=== PATIENT | male | born 1940 | race Caucasian/White ===

== ENCOUNTER → 2024-01-03 08:09 | Outpatient (REF) | payer OTHER, SELFPAY ==
[2024-01-03 08:40] LABS: % Basophils 1.7 % (0-2); % Eosinophils 10.2 % (0-6); % Immature Granulocytes 0.3 % (0-0.5); % Lymphocytes 31.5 % (20.5-51.1); % Monocytes 8.6 % (1.7-9.3); % Neutrophils 47.7 % (42.2-75.2); Absolute Basophils 0.1 10^3/uL (0-0.2); Absolute Eosinophils 0.7 10^3/uL (0-0.7); Absolute Lymphocytes 2.1 10^3/uL (1.2-3.4); Absolute Monocytes 0.6 10^3/uL (0.1-0.6); Absolute Neutrophils 3.1 10^3/uL (1.4-6.5); Hematocrit 36.6 % (39.0-52.0); Hemoglobin 12.4 g/dL (13.0-18.0); Mean Corp Hgb Conc. 33.9 g/dL (33.0-37.0); Mean Corpuscular Hgb 32.5 pg (27.0-31.0); Mean Corpuscular Volume 96.1 fL (80.0-94.0); Nucleated Red Blood Cells % 0 % (-); Platelet Count 216 10^3/uL (130-400); Red Blood Cell Count 3.81 10^6/uL (4.70-6.10); Red Cell Dist. Width 12.8 % (11.5-14.5); White Blood Cell Count 6.5 10^3/uL (4.8-10.8)
[2024-01-03 09:11] LABS: ALT (SGPT) 17 U/L (0-50); AST (SGOT) 28 U/L (17-59); Alkaline Phosphatase 47 U/L (38-126); Blood Urea Nitrogen 21 mg/dl (9-20); Calcium 9.2 mg/dl (8.4-10.2); Carbon Dioxide 26 mmol/L (22-30); Chloride 107 mmol/L (98-107); Glucose 90 mg/dl (70-99); HDL Cholesterol 45 mg/dl; LDL Cholesterol, Calculated 52 mg/dl; Potassium 4.2 mmol/L (3.5-5.1); Sodium 122 mmol/L (135-145); Total Bilirubin 0.8 mg/dl (0.2-1.3); Total Cholesterol 122 mg/dl (50-199); Total Protein 6.3 g/dl (6.3-8.2); Triglyceride 128 mg/dl (10-149); Very Low Density Lipoprotein 25 mg/dl (0-30); eGFR 45.34
== END ==
LOC: REG 08:09
PROVIDERS: ATTENDING PHYSICIAN Internal Medicine Cardiovascular Disease; FAMILY PHYSICIAN Internal Medicine
DX: Z00.00 Encounter for general adult medical examination without abnormal findings (principal); E78.5 Hyperlipidemia, unspecified; I10 Essential (primary) hypertension; E66.3 Overweight
CPT/HCPCS: 36415; 80053; 80061; 85025

== ENCOUNTER → 2024-01-10 11:45 | Outpatient (REF) | payer OTHER, SELFPAY ==
[2024-01-10 12:48] LABS: Carbon Dioxide 24 mmol/L (22-30); Chloride 108 mmol/L (98-107); Potassium 4.2 mmol/L (3.5-5.1); Sodium 138 mmol/L (135-145)
== END ==
LOC: REG 11:45
PROVIDERS: ATTENDING PHYSICIAN Internal Medicine
DX: E87.1 Hypo-osmolality and hyponatremia (principal)
CPT/HCPCS: 36415; 80051

== ENCOUNTER → 2024-03-21 14:15 | Outpatient (REF) | payer OTHER, SELFPAY | LOC: DHCBC MAIN 14:15 | PROVIDERS: ATTENDING PHYSICIAN Internal Medicine Cardiovascular Disease; FAMILY PHYSICIAN Internal Medicine | DX: I44.2 Atrioventricular block, complete (principal); Z95.0 Presence of cardiac pacemaker; I25.810 Atherosclerosis of coronary artery bypass graft(s) without angina pectoris; R60.0 Localized edema | CPT/HCPCS: 93306 ==

== ENCOUNTER → 2024-07-19 10:52 | Outpatient (REF) | payer OTHER, SELFPAY | LOC: DHCBC/DCA 10:52 | PROVIDERS: ATTENDING PHYSICIAN Nurse Practitioner Gerontology; FAMILY PHYSICIAN Internal Medicine | DX: R53.83 Other fatigue (principal); I20.89 Other forms of angina pectoris; I25.10 Atherosclerotic heart disease of native coronary artery without angina pectoris | CPT/HCPCS: 78452; 93017; A9500; J2785 ==

== ENCOUNTER → 2024-08-30 08:24 | Outpatient (REF) | payer OTHER, SELFPAY ==
[2024-08-30 09:20] LABS: ALT (SGPT) 23 U/L (0-50); AST (SGOT) 34 U/L (17-59); Albumin 4.4 g/dl (3.5-5.0); Alkaline Phosphatase 34 U/L (38-126); Direct Bilirubin 0.3 mg/dl (0.0-0.4); HDL Cholesterol 46 mg/dl; LDL Cholesterol, Calculated 65 mg/dl; Total Bilirubin 1.1 mg/dl (0.2-1.3); Total Cholesterol 134 mg/dl (50-199); Total Protein 6.5 g/dl (6.3-8.2); Triglyceride 119 mg/dl (10-149); Very Low Density Lipoprotein 23 mg/dl (0-30)
== END ==
LOC: REG 08:24
PROVIDERS: ATTENDING PHYSICIAN Internal Medicine
DX: Z00.00 Encounter for general adult medical examination without abnormal findings (principal); E78.5 Hyperlipidemia, unspecified
CPT/HCPCS: 36415; 80061; 80076

== ENCOUNTER 2024-10-25 16:30 | Emergency (ER) | payer OTHER, SELFPAY ==
[2024-10-25 16:40] VITALS: BP 175/59
--- NOTE | 2024-10-25 19:25 | ED.GENMED ---
History of Present Illness
<HUSEYIN Kohler - Last Filed: 10/25/24 22:02>
General
Chief Complaint: Skin Problem
Source: patient
Time Seen by Provider: 10/25/24 19:02
Nursing documentation reviewed up to this point in time: agreed with
History of Present Illness
History of Present Illness:
Pt is a 83 yo M with an extensive PMH who presents to the emergency department with pain of the right foot since 3am. Pt reports that he was in sleeping in bed when the pain began. Pt states that the pain is located in his right foot at the MTP and
right first metatarsal. Pt describes the pain overall as achy, and that it becomes sharp at times. Pt states that since the pain began his toe has become swollen and erythematous throughout the day. Pt states that he took 2 tabs of Tylenol at 3pm
without relief of pain. Pt states that he has never experienced this before. Pt denies trauma or injury to the area. Pt denies fever, chills, N/V, rash. Pt denies a history of gout.
Past History
<HUSEYIN Kohler - Last Filed: 10/25/24 22:02>
Past History
ED Past Medical History: CAD, Cancer (Prostate CA), HTN, Hypercholesterolemia and Other (PVD)
ED Past Surgical History: Appendectomy, Bowel resection, Cardiac (CABG, Stents X 3) and Urological (Prostetectomy)
Social History
Tobacco: Non-smoker
Alcohol: None
Drug: None
Personal:
Living: with family
Employment: Retired
Family History
Family History: Other
Review of Systems
<HUSEYIN Kohler - Last Filed: 10/25/24 22:02>
Review of Systems
Allergies reviewed?: Yes
Constitutional: Reports no symptoms
Respiratory: Reports no symptoms
Cardiac: Reports no symptoms
ABD/GI: Reports no symptoms
Musculoskeletal: Reports joint pain and joint swelling
Skin: Reports other (skin red at MTP of right foot)
Neurological: Reports no symptoms
Phy Exam
<Michelle Whiteside [facility] - Last Filed: 10/25/24 22:02>
General Physical Exam
General Presentation: well appearing and no apparent distress
General age: appears stated age
General Skin: warm
General Habitus: normal
General Mental: alert
General Hydration: appears well hydrated
Cardiovascular Exam
Cardiovascular Exam: regular rate/rhythm
Pulmonary Exam
Pulmonary Exam: lungs clear
Skin Exam
Skin Exam: erythema, redness, tenderness, warmth and other (right foot MTP redness and swelling)
Course
<Michelle Whiteside [facility] - Last Filed: 10/25/24 22:02>
Orders/Labs/Results
Orders:
Orders
10/25/24 19:38
Foot, Right 3 View [CR Foot - Right Min 3 Views] Urgent
Comment:
Reason For Exam: acute pain, redness swelling 1st MTP joint
10/25/24 19:40
Ketorolac [Toradol] 15 mg IV NOW STA
10/25/24 19:52
Basic Metabolic Panel Urgent
CRP [C-Reactive Protein] Urgent
Complete Blood Count/With Diff Urgent
Lactic Acid Urgent
Sed Rate [Erythrocyte Sed Rate] Urgent
Uric Acid Urgent
10/25/24 21:47
Doxycycline [Vibramycin] 100 mg PO NOW STA
Prednisone [Deltasone] 50 mg PO NOW STA
Abnormal Lab Results
10/25/24
19:52
WBC 12.9 H 10^3/uL
(4.8-10.8)
RBC 3.58 L 10^6/uL
(4.70-6.10)
Hgb 12.0 L g/dL
(13.0-18.0)
Hct 35.2 L %
(39.0-52.0)
MCV 98.3 H fL
(80.0-94.0)
MCH 33.5 H pg
(27.0-31.0)
Abs Immat Gran (auto) 0.1 H 10^3/uL
(0-0.05)
Absolute Neuts (auto) 9.9 H 10^3/uL
(1.4-6.5)
Absolute Monos (auto) 1.1 H 10^3/uL
(0.1-0.6)
Neutrophils % 76.7 H %
(42.2-75.2)
Lymphocytes % 10.5 L %
(20.5-51.1)
BUN 24 H mg/dl
(9-20)
10/25/24 19:52
10/25/24 19:52
Vital Signs
Initial and Last Documented VS:
Initial Vital Signs
Temp Pulse Resp BP Pulse Ox
97.6 F 66 16 175/59 99
10/25/24 16:40 10/25/24 16:40 10/25/24 16:40 10/25/24 16:40 10/25/24 16:40
Last Documented Vital Signs
Temp Pulse Resp BP Pulse Ox
97.6 F 66 16 175/59 99
10/25/24 16:40 10/25/24 16:40 10/25/24 16:40 10/25/24 16:40 10/25/24 16:40
Jamallt;Sindi Prasad DO - Last Filed: 10/25/24 21:54>
Orders/Labs/Results
Orders:
Orders
10/25/24 19:38
Foot, Right 3 View [CR Foot - Right Min 3 Views] Urgent
Comment:
Reason For Exam: acute pain, redness swelling 1st MTP joint
10/25/24 19:40
Ketorolac [Toradol] 15 mg IV NOW STA
10/25/24 19:52
Basic Metabolic Panel Urgent
CRP [C-Reactive Protein] Urgent
Complete Blood Count/With Diff Urgent
Lactic Acid Urgent
Sed Rate [Erythrocyte Sed Rate] Urgent
Uric Acid Urgent
10/25/24 21:47
Doxycycline [Vibramycin] 100 mg PO NOW STA
Prednisone [Deltasone] 50 mg PO NOW STA
Abnormal Lab Results
10/25/24
19:52
WBC 12.9 H 10^3/uL
(4.8-10.8)
RBC 3.58 L 10^6/uL
(4.70-6.10)
Hgb 12.0 L g/dL
(13.0-18.0)
Hct 35.2 L %
(39.0-52.0)
MCV 98.3 H fL
(80.0-94.0)
MCH 33.5 H pg
(27.0-31.0)
Abs Immat Gran (auto) 0.1 H 10^3/uL
(0-0.05)
Absolute Neuts (auto) 9.9 H 10^3/uL
(1.4-6.5)
Absolute Monos (auto) 1.1 H 10^3/uL
(0.1-0.6)
Neutrophils % 76.7 H %
(42.2-75.2)
Lymphocytes % 10.5 L %
(20.5-51.1)
BUN 24 H mg/dl
(9-20)
10/25/24 19:52
10/25/24 19:52
Vital Signs
Initial and Last Documented VS:
Initial Vital Signs
Temp Pulse Resp BP Pulse Ox
97.6 F 66 16 175/59 99
10/25/24 16:40 10/25/24 16:40 10/25/24 16:40 10/25/24 16:40 10/25/24 16:40
Last Documented Vital Signs
Temp Pulse Resp BP Pulse Ox
97.6 F 66 16 175/59 99
10/25/24 16:40 10/25/24 16:40 10/25/24 16:40 10/25/24 16:40 10/25/24 16:40
<HUSEYIN Kohler - Last Filed: 10/25/24 22:02>
MDM/Problems Addressed
Differential Diagnosis Includes:
Gout, pseudogout, arthritis
<HUSEYIN Kohler - Last Filed: 10/25/24 22:02>
*Critical Care Note
Total Time (30-74mins, 75-104mins- exclusive of procedures): Not Applicable
<Sindi Prasad DO - Last Filed: 10/25/24 21:54>
*Radiology
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 Focal soft tissue swelling.)
*Pulse Oximetry
Patient hypoxic: no
ED Attending Note
<HUSEYIN Kohler - Last Filed: 10/25/24 22:02>
-
Portions of this chart may have been created with voice recognition software.� Occasional wrong word or��sound alike� substitutions may have occurred due to the inherent limitations of voice recognition software.
<Sindi Prasad DO - Last Filed: 10/25/24 21:54>
ED Attending Note
Patient seen and examined by attending physician: Yes
I performed the substantive portion of visit, reviewed & personally made and approve the management plan that is documented in note by myself or TERE.: Yes
ED Attending Note:
This is an 83-year-old gentleman who resides at home with his . He has history of CAD status post stents as well as CABG 2019. 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 History of lumbar disc
disease status postlaminectomy January 2023, history of prostate cancer, hypertension, hyperlipidemia, peripheral vascular disease. Chronically maintained on Eliquis as well as low-dose aspirin.
He presents with acute redness, swelling, pain first MTP joint of right foot that he initially noticed early this morning at 3 AM. Pain, swelling and redness have worsened throughout the day. He took Tylenol at 3 PM without relief.
No history of injury, no history of similar episodes in the past. He denies fever nor chills.
No recent change in medications.
Prior records reviewed. Most recent hospitalization August 2023 reviewed.
Echocardiogram February 2024, normal EF. Normal LV systolic function. Mild aortic stenosis.
Nuclear stress test June 2024 showing normal perfusion imaging.
Noted to have acute kidney injury with creatinine up trended to 1.7 during hospitalization August 2023, normalized with IV fluids.
GENERAL: 83-year-old gentleman appears his stated age, bright and alert, pleasant, appears in no acute distress. is accompanying.
EYE: anicteric
NECK: Supple, nontender, no meningismus, no significant adenopathy.
ENT: oral mucosa is moist. No rhinorrhea.
CARDIAC: Regular rate and rhythm. no murmur.
LUNGS: Clear breath sounds bilaterally, no acute respiratory distress, no wheezes/rales/rhonchi
ABDOMEN: Soft, nondistended, without focal tenderness, normoactive BS.
NEUROLOGICAL: Alert and oriented x3, no focal neuro deficits.
SKIN: Warm and dry, normal color, skin intact. No rash.
MUSCULOSKELETAL: No clubbing or cyanosis. No peripheral edema. Peripheral pulses are full and equal b/l. The first MTP joint of the right foot has moderate local erythema, soft tissue swelling and moderate local tenderness to palpation.
Moderately decreased range of motion of first MTP related to pain. There is no lymphangitis. Area is minimally warm to touch. There is no rash nor skin breakdown. There is no tenderness to the ankle nor lower leg, no swelling of the ankle nor
swelling of the lower leg.
PSYCH: Normal and appropriate interaction.
Patient presents with acute inflammatory arthropathy of first MTP joint of right foot. Concern for acute gouty arthropathy, pseudogout, osteoarthritis flare, other consideration is focal infectious arthropathy.
No history of immunocompromise nor significant risk factors for such.
No prior history of gout nor other inflammatory arthropathies.
He does admit to eating more cheese recently but denies alcohol use, denies significant consumption of red meat, shellfish, excetra.
Will check labs, inflammatory markers, uric acid and will check x-ray right foot.
Will trial small dose IV Toradol for pain.
10/25/2024 2151 PM
Patient reevaluated. Feeling moderately improved after IV Toradol. He remains afebrile.
Labs show mildly elevated white blood cell count of 12.9, mildly stable anemia. Chemistries are unremarkable. Creatinine of 1.2, at his baseline.
Uric acid is normal.
Inflammatory markers are all normal including CRP, lactic acid and sed rate. As such infectious arthropathy is much less likely.
X-ray shows moderate DJD at first MTP joint.
I suspect acute inflammatory arthropathy.
Will treat with a course of prednisone and due to history of pacemaker insertion, elevated white blood cell count there is still some concern for potential focal cellulitis thus we will add a course of doxycycline.
Recommend elevation, heat. May take Tylenol as needed for pain and patient does have tramadol at home for as needed moderate pain. 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
Prompt follow-up with PCP for recheck.
Return precautions discussed.
Discharge Plan
Departure
Patient Disposition: Home (Routine Discharge)
Date of Disposition: 10/25/24
Time of Disposition: 21:51
Patient with high blood pressure during this ER visit?: No
Condition: Good
Discharge Problem:
acute inflammatory arthropathy
Instructions: Osteoarthritis, Cellulitis (Skin Infection), Adult (DC), Gout ED
Prescriptions:
New
prednisone 10 mg Tablet
See Rx Instructions .ROUTE .COMPLEX Qty: 30 0RF
Rx Instructions:
Take By Mouth:
40 mg daily x3 days, 30 mg daily x3 days,
20 mg daily x3 days, 10 mg daily x3 days.
doxycycline monohydrate 100 mg capsule
100 mg PO BID Qty: 14 1RF
No Action
aspirin 81 MG tablet,delayed release (DR/EC)
81 mg PO HS
cholecalciferol (vitamin D3) [Vitamin D3] 1,000 UNIT capsule
1,000 unit PO DAILY
rosuvastatin 20 MG tablet
20 mg PO HS
[employer] 1 EACH capsule
1 ea PO DAILY
clopidogrel 75 MG tablet
75 mg PO DAILY
pantoprazole 40 MG tablet,delayed release (DR/EC)
40 mg PO DAILY
metoprolol succinate 25 MG tablet extended release 24 hr
25 mg PO DAILY Qty: 30 1RF
gabapentin 100 mg Capsule
100 mg PO TID
Patient Comments:
stopped taking this
Rx Instructions:
stopped taking this
hydralazine 10 MG tablet
20 mg PO TID Qty: 1 0RF
Rx Instructions:
HOLD if systolic blood pressure <130 while on Percocet.
acetaminophen 325 MG tablet
650 mg PO Q4HPRN PRN (Reason: mild pain) Qty: 60 0RF
Rx Instructions:
DO NOT exceed >4000 mg daily while on Percocet.
1 Percocet tab = 325 mg of Tylenol.
dsoxaxhpqiaq-cqnskygo-aprjox Tablet
1 tab PO DAILY
polyethylene glycol 3350 [HealthyLax] 17 gram Powder In Packet
17 g PO DAILY 30 Days Qty: 30 0RF
Rx Instructions:
hold if diarrhea
Referrals:
Eduardo Pro MD [Family Provider] - Call in 1-3 days for appt
Interventions
Interventions:
*Risk Screen - Suicide Last Done: 10/25/24 16:40
*General Assessment Last Done: 10/25/24 19:58
*Neglect/Abuse Screening Last Done: 10/25/24 19:58
ED- Fall Risk Assessment Last Done: 10/25/24 19:58
*ED COVID-19 Vaccine History Last Done: 10/25/24 19:58
ED-Skin Assessment Last Done: 10/25/24 19:58
Discharge Date and Time
Print Language: SAMMARINESE
[2024-10-25] MEDS: TORADOL 15 MG IV (19:53)
[2024-10-25 19:58] VITALS: BMI 25.6
[2024-10-25 20:05] LABS: % Basophils 0.9 % (0-2); % Eosinophils 2.6 % (0-6); % Immature Granulocytes 0.5 % (0-0.5); % Lymphocytes 10.5 % (20.5-51.1); % Monocytes 8.8 % (1.7-9.3); % Neutrophils 76.7 % (42.2-75.2); Absolute Basophils 0.1 10^3/uL (0-0.2); Absolute Eosinophils 0.3 10^3/uL (0-0.7); Absolute Immature Granulocytes 0.1 10^3/uL (0-0.05); Absolute Lymphocytes 1.4 10^3/uL (1.2-3.4); Absolute Monocytes 1.1 10^3/uL (0.1-0.6); Absolute Neutrophils 9.9 10^3/uL (1.4-6.5); Hematocrit 35.2 % (39.0-52.0); Mean Corp Hgb Conc. 34.1 g/dL (33.0-37.0); Mean Corpuscular Hgb 33.5 pg (27.0-31.0); Mean Corpuscular Volume 98.3 fL (80.0-94.0); Mean Platelet Volume 9.3 fL (7.4-10.4); Nucleated Red Blood Cells % 0 % (-); Platelet Count 241 10^3/uL (130-400); Red Blood Cell Count 3.58 10^6/uL (4.70-6.10); Red Cell Dist. Width 12.6 % (11.5-14.5); White Blood Cell Count 12.9 10^3/uL (4.8-10.8)
[2024-10-25 20:14] LABS: Erythrocyte Sed Rate 11 mm/hour (0-20); Lactic Acid 1.5 mmol/L (0.7-2.0)
[2024-10-25 20:23] LABS: Blood Urea Nitrogen 24 mg/dl (9-20); Calcium 9.7 mg/dl (8.4-10.2); Carbon Dioxide 23 mmol/L (22-30); Chloride 103 mmol/L (98-107); Estimated Creatinine Clearance 42 ml/min; Glucose 96 mg/dl (70-99); Potassium 4.6 mmol/L (3.5-5.1); Sodium 138 mmol/L (135-145); Uric Acid 4.5 mg/dl (3.5-8.5); eGFR 59.26
[2024-10-25] MEDS: DELTASONE 50 MG PO (22:00)
[2024-10-25] MEDS: VIBRAMYCIN 100 MG PO (22:00)
[2024-10-25 22:01] VITALS: BP 183/79
== END 2024-10-25 22:11 | disposition home or self-care (01) ==
LOC: EMR 16:30
PROVIDERS: EMERGENCY PHYSICIAN Emergency Medicine; FAMILY PHYSICIAN Internal Medicine
DX: M12.871 Other specific arthropathies, not elsewhere classified, right ankle and foot (principal); M79.671 Pain in right foot; M79.89 Other specified soft tissue disorders; M19.071 Primary osteoarthritis, right ankle and foot; I25.10 Atherosclerotic heart disease of native coronary artery without angina pectoris; I10 Essential (primary) hypertension; E78.00 Pure hypercholesterolemia, unspecified; I73.9 Peripheral vascular disease, unspecified; K21.9 Gastro-esophageal reflux disease without esophagitis; K58.9 Irritable bowel syndrome, unspecified; M48.00 Spinal stenosis, site unspecified; D64.9 Anemia, unspecified; Z79.82 Long term (current) use of aspirin; Z95.5 Presence of coronary angioplasty implant and graft; Z95.0 Presence of cardiac pacemaker; Z95.1 Presence of aortocoronary bypass graft; Z85.46 Personal history of malignant neoplasm of prostate; Z98.0 Intestinal bypass and anastomosis status; Z90.79 Acquired absence of other genital organ(s); Z88.8 Allergy status to other drugs, medicaments and biological substances
CPT/HCPCS: 99284; 96374; 73630; 80048; 83605; 84550; 85025; 85652; 86140

== ENCOUNTER → 2025-01-03 08:45 | Outpatient (REF) | payer OTHER, SELFPAY ==
[2025-01-03 09:43] LABS: % Basophils 1.1 % (0-2); % Eosinophils 11.5 % (0-6); % Immature Granulocytes 0.3 % (0-0.5); % Lymphocytes 20.5 % (20.5-51.1); % Monocytes 8.3 % (1.7-9.3); % Neutrophils 58.3 % (42.2-75.2); Absolute Basophils 0.1 10^3/uL (0-0.2); Absolute Eosinophils 0.8 10^3/uL (0-0.7); Absolute Lymphocytes 1.5 10^3/uL (1.2-3.4); Absolute Monocytes 0.6 10^3/uL (0.1-0.6); Absolute Neutrophils 4.2 10^3/uL (1.4-6.5); Hematocrit 35.7 % (39.0-52.0); Hemoglobin 12.1 g/dL (13.0-18.0); Mean Corp Hgb Conc. 33.9 g/dL (33.0-37.0); Mean Corpuscular Hgb 33.1 pg (27.0-31.0); Mean Corpuscular Volume 97.5 fL (80.0-94.0); Mean Platelet Volume 9.1 fL (7.4-10.4); Nucleated Red Blood Cells % 0 % (-); Platelet Count 226 10^3/uL (130-400); Red Blood Cell Count 3.66 10^6/uL (4.70-6.10); Red Cell Dist. Width 12.6 % (11.5-14.5); White Blood Cell Count 7.2 10^3/uL (4.8-10.8)
[2025-01-03 10:20] LABS: ALT (SGPT) 19 U/L (0-50); AST (SGOT) 30 U/L (17-59); Albumin 4.2 g/dl (3.5-5.0); Alkaline Phosphatase 44 U/L (38-126); Blood Urea Nitrogen 19 mg/dl (9-20); Calcium 9.9 mg/dl (8.4-10.2); Carbon Dioxide 26 mmol/L (22-30); Chloride 103 mmol/L (98-107); Glucose 89 mg/dl (70-99); HDL Cholesterol 40 mg/dl; Potassium 4.7 mmol/L (3.5-5.1); Sodium 138 mmol/L (135-145); Total Cholesterol 114 mg/dl (50-199); eGFR 48.95
[2025-01-03 10:57] LABS: LDL Cholesterol, Calculated 50 mg/dl; Triglyceride 120 mg/dl (10-149); Very Low Density Lipoprotein 24 mg/dl (0-30)
[2025-01-03 14:50] LABS: PSA, Total - Screen < 0.06 ng/ml (0.0-4.0)
== END ==
LOC: REG 08:45
PROVIDERS: ATTENDING PHYSICIAN Internal Medicine
DX: Z00.01 Encounter for general adult medical examination with abnormal findings (principal); I35.0 Nonrheumatic aortic (valve) stenosis; I35.1 Nonrheumatic aortic (valve) insufficiency; Z85.46 Personal history of malignant neoplasm of prostate; Z95.1 Presence of aortocoronary bypass graft; N28.9 Disorder of kidney and ureter, unspecified
CPT/HCPCS: 36415; 80053; 80061; 85025; G0103

== ENCOUNTER → 2025-01-19 11:36 | Outpatient (REF) | payer OTHER, SELFPAY ==
[2025-01-19 13:29] LABS: C-Reactive Protein < 5.00 mg/L (0.0-10.00)
[2025-01-19 14:34] LABS: Glycohemoglobin (HgbA1c) 5.5 % (4.0-5.6)
[2025-01-19 15:28] LABS: Erythrocyte Sed Rate 8 mm/hour (0-20)
== END ==
LOC: REG 11:36
PROVIDERS: ATTENDING PHYSICIAN Optometrist; FAMILY PHYSICIAN Internal Medicine
DX: H53.2 Diplopia (principal)
CPT/HCPCS: 36415; 83036; 85652; 86140; 86618

== ENCOUNTER → 2025-07-02 08:07 | Outpatient (REF) | payer OTHER, SELFPAY ==
[2025-07-02 10:25] LABS: ALT (SGPT) 19 U/L (0-50); AST (SGOT) 29 U/L (17-59); Albumin 4.3 g/dl (3.5-5.0); Alkaline Phosphatase 36 U/L (38-126); HDL Cholesterol 41 mg/dl; LDL Cholesterol, Calculated 72 mg/dl; Total Protein 6.4 g/dl (6.3-8.2); Very Low Density Lipoprotein 20 mg/dl (0-30)
== END ==
LOC: REG 08:07
PROVIDERS: ATTENDING PHYSICIAN Internal Medicine
DX: E78.5 Hyperlipidemia, unspecified (principal); I10 Essential (primary) hypertension
CPT/HCPCS: 36415; 80061; 80076

== ENCOUNTER → 2025-07-04 10:20 | Outpatient (REF) | payer OTHER, SELFPAY | LOC: RCS 10:20 | PROVIDERS: ATTENDING PHYSICIAN Internal Medicine Cardiovascular Disease; FAMILY PHYSICIAN Internal Medicine | DX: I35.0 Nonrheumatic aortic (valve) stenosis (principal) | CPT/HCPCS: 93306 ==

== ENCOUNTER → 2025-08-03 08:49 | Outpatient (REF) | payer OTHER, SELFPAY | LOC: RAD 08:49 | PROVIDERS: ATTENDING PHYSICIAN Surgery Vascular Surgery; FAMILY PHYSICIAN Internal Medicine | DX: I65.23 Occlusion and stenosis of bilateral carotid arteries (principal) | CPT/HCPCS: 93880; 93923; 93925 ==